=== PATIENT | female | born 1985 | race Caucasian/White ===

== ENCOUNTER 2017-05-23 09:50 | Emergency (ER) | payer OTHER ==
[2017-05-23 09:51] VITALS: BMI 25.4
[2017-05-23 10:00] VITALS: O2SAT 99
[2017-05-23] MEDS ORDERED: Naproxen 550 mg Tab PO STA (10:23)
[2017-05-23] MEDS ORDERED: Naproxen 550 mg Tab PO ONE (10:28)
--- NOTE | 2017-05-23 10:45 | RAD ---
PROCEDURE: Right Knee Radiographs. HISTORY: COMPARISON: None available. FINDINGS: BONES: No acute displaced fracture. JOINTS: No dislocation. JOINT EFFUSION: Tiny suprapatellar joint effusion. OTHER FINDINGS: None. IMPRESSION: Tiny suprapatellar joint effusion. No acute displaced fracture or dislocation.If symptoms persist, or if there is continued clinical concern, x-ray follow-up in 7-10 days should be considered.
--- NOTE | 2017-05-23 10:57 | C.PDOC ---
History Of Present Illness 31 y/o female c/o right knee pain for 3 days. She states the pain started after running on the treadmill on Sunday. She reports pain to medial aspect of the knee, worse with ambulation. Patient denies direct trauma, calf pain, SOB, chest pain, fever. Time Seen by Provider: 05/23/17 10:02 Chief Complaint (Nursing): Lower Extremity Problem/Injury History Per: Patient History/Exam Limitations: no limitations Onset/Duration Of Symptoms: Days Current Symptoms Are (Timing): Still Present Severity: Mild - Knee Description Of Injury: denies: Other Past Medical History Reviewed: Historical Data, Nursing Documentation, Vital Signs Vital Signs: Last Vital Signs Temp 98.2 F 05/23/17 12:44 Pulse 75 05/23/17 12:44 Resp 18 05/23/17 12:44 BP 119/69 05/23/17 12:44 Pulse Ox 99 05/23/17 12:44 - Medical History PMH: No Chronic Diseases - [facility] Procedures OTHER LOCAL DESTRUC SKIN (01/02/13) Family History: States: No Known Family Hx - Social History Hx Tobacco Use: No Hx Alcohol Use: No Hx Substance Use: No - Immunization History Hx Tetanus Toxoid Vaccination: No Hx Influenza Vaccination: No Hx Pneumococcal Vaccination: No Review Of Systems Except As Marked, All Systems Reviewed And Found Negative. Constitutional: Negative for: Fever, Chills Cardiovascular: Negative for: Chest Pain, Palpitations Respiratory: Negative for: Shortness of Breath Musculoskeletal: Positive for: Other (R knee pain) Skin: Negative for: Rash Neurological: Negative for: Weakness, Numbness Physical Exam - Physical Exam Appears: Well, Non-toxic, No Acute Distress Skin: Normal Color, Warm, Dry, No Rash Oral Mucosa: Moist Cardiovascular: Rhythm Regular Respiratory: Normal Breath Sounds, No Rales, No Rhonchi, No Wheezing Gastrointestinal/Abdominal: Normal Exam, Bowel Sounds, Soft, No Tenderness Pelvic: Normal External Exam, Normal Bimanual Exam, Vaginal Discharge (mild amount of thin white discharge, no CMT), No Cervical Motion Tenderness, No Cervix Open, No Adnexal Tenderness, No Mass Extremity: No Calf Tenderness, Capillary Refill (< 2 sec all digits ), No Deformity, Other (R knee: mild swelling at medial aspect, +tender to palpation. Pain worsens with flexion of the knee. ROM intact. No erythema or warmth. No calf tenderness. Pedal pulses normal. ) Extremity: Bilateral: Normal Color And Temperature Pulses: Left Dorsalis Pedis: Normal, Right Dorsalis Pedis: Normal Neurological/Psych: Oriented x3, Normal Motor, Normal Sensation Gait: Steady ED Course And Treatment O2 Sat by Pulse Oximetry: 99 (RA) Pulse Ox Interpretation: Normal - Other Rad R KNEE X-RAY X-Ray: Viewed By Me, Read By Radiologist Interpretation: IMPRESSION: Tiny suprapatellar joint effusion. No acute displaced fracture or dislocation.If symptoms persist, or if there is continued clinical concern, x-ray follow-up in 7-10 days should be considered. Progress Note: Patient given PO naprosyn. Xray of right knee ordered and reviewed - (-) for fracture/dislocation. When reassessed prior to discharge, patient now states she also has suprapubic cramping and vaginal discharge. UA, Upreg and GC swab ordered. Patient admits to concern for STDs because her "goes to bars". Pelvic exam done by me, patient given IM rocephin and PO Azithromycin, as well as Rx for Flagyl. She was instructed to follow up with orthopedics and nursing technician within 1 week, and understands she should return to ED if symptoms worsen. Reevaluation Time: 12:30 Reassessment Condition: Improved Disposition Counseled Patient/Family Regarding: Studies Performed, Diagnosis, Need For Followup, Rx Given - Disposition Referrals: [facility] [Outside] [facility] [Outside] Jim Melton III, MD [Staff Provider] - Disposition: HOME/ ROUTINE Disposition Time: 12:30 Condition: STABLE Additional Instructions: SEGUIMIENTO CON ORTOPEDIA DENTRO DE 1 SEMANA EVITE DEPORTES / GIMNASIO [place]STA QUE SEA LIBERADO POR ORTOPEDIA USE MEDICAMENTO PARA DOLOR SEGN SEA NECESARIO REGRESE AL EDWIN DE EMERGENCIA SI LOS SNTOMAS EMPEORAN Prescriptions: metroNIDAZOLE [Flagyl] 500 mg PO BID #14 tab Naproxen [Naprosyn] 1 tab PO BID PRN #25 tab PRN Reason: Pain Instructions: Cervicitis (ED), Knee Sprain (ED) Forms: [employer] (Ugandan) Print Language: MALAY - POA Present On Arrival: None - Clinical Impression Clinical Impression: Right knee sprain, Soft tissue injury of knee, Cervicitis - Scribe Statement The provider has reviewed the documentation as recorded by the Scribe SM All medical record entries made by the Scribe were at my direction and personally dictated by me. I have reviewed the chart and agree that the record accurately reflects my personal performance of the history, physical exam, medical decision making, and the department course for this patient. I have also personally directed, reviewed, and agree with the discharge instructions and disposition.
[2017-05-23 11:31] LABS: RBC URINE < 1 /hpf (0-3); URINE BILIRUBIN NEGATIVE (NEGATIVE); URINE BLOOD NEGATIVE (NEGATIVE); URINE COLOR Straw (YELLOW); URINE GLUCOSE (UA) NORMAL (Normal); URINE KETONE NEGATIVE (NEGATIVE); URINE LEUKOCYTE ESTERASE NEG Leu/uL (Negative); URINE PROTEIN NEGATIVE (NEGATIVE); URINE UROBILINOGEN NORMAL mg/dL (0.2-1.0); WBC URINE < 1 /hpf (0-5)
[2017-05-23] MEDS ORDERED: cefTRIAXone (Rocephin) 250 mg Inj IM STA (11:55)
[2017-05-23 12:45] VITALS: BP 119/69; PULSE 75; RESP 18; TEMP 98.2
== END 2017-05-23 12:45 | disposition home or self-care (01) ==
LOC: C.ER 09:50
DX: S83.91XA Sprain of unspecified site of right knee, initial encounter (principal); X58.XXXA Exposure to other specified factors, initial encounter; Y93.A1 Activity, exercise machines primarily for cardiorespiratory conditioning

== ENCOUNTER 2017-11-27 09:46 | Emergency (ER) | payer OTHER ==
[2017-11-27 09:47] VITALS: BMI 28.9
[2017-11-27 09:56] VITALS: BP 115/63; PULSE 61; RESP 16; TEMP 98.5; O2SAT 99
--- NOTE | 2017-11-27 10:32 | C.PDOC ---
History Of Present Illness 32 year old female presents to the ED with bilateral wrist pain for the past 2 weeks. 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 She is right hand dominant. She denies any trauma, direct injury, fever, or chills. Patient says she took Tylenol with no improvement. Patient denies having any other joint pain. Time Seen by Provider: 11/27/17 09:58 Chief Complaint (Nursing): Upper Extremity Problem/Injury History Per: Patient History/Exam Limitations: no limitations Onset/Duration Of Symptoms: Days Current Symptoms Are (Timing): Still Present Past Medical History Reviewed: Historical Data, Nursing Documentation, Vital Signs Vital Signs: Last Vital Signs Temp 98.5 F 11/27/17 09:54 Pulse 61 11/27/17 09:54 Resp 16 11/27/17 09:54 BP 115/63 11/27/17 09:54 Pulse Ox 99 11/27/17 11:36 Surgical History: (3) - [facility] Procedures OTHER LOCAL DESTRUC SKIN (01/02/13) Family History: States: Unknown Family Hx - Social History Hx Tobacco Use: No Hx Alcohol Use: No Hx Substance Use: No - Immunization History Hx Tetanus Toxoid Vaccination: No Hx Influenza Vaccination: No Hx Pneumococcal Vaccination: No Review Of Systems Except As Marked, All Systems Reviewed And Found Negative. Musculoskeletal: Positive for: Other (wrist pain) Physical Exam - Physical Exam Appears: Non-toxic, No Acute Distress Skin: Normal Color, Warm Head: Atraumatic, Normacephalic Eye(s): bilateral: Normal Inspection Extremity: Tenderness (to bilateral wrists), No Swelling, Other ( neurovascularly intact) Neurological/Psych: Oriented x3, Normal Speech ED Course And Treatment O2 Sat by Pulse Oximetry: 99 (RA) Pulse Ox Interpretation: Normal Medical Decision Making Medical Decision Making: IMPRESSION: Joint Pain Plan: --Motrin 600 mg PO --Given a splint for both wrists Patient is stable for discharge home. Advised to follow-up with pain management. Disposition Counseled Patient/Family Regarding: Studies Performed, Diagnosis, Need For Followup, Rx Given - Disposition Disposition: HOME/ ROUTINE Disposition Time: 10:31 Condition: STABLE Additional Instructions: follow up with pain management in 2 days call to make an appointment ice wrist after work each day take pain medications as prescribed take medication with food return to ER if symptoms worsens or progress Prescriptions: Naproxen [Naprosyn] 500 mg PO BID PRN #16 tab PRN Reason: Pain, Moderate (4-7) Instructions: Joint Pain Forms: Gen Discharge Inst [place], [facility] ([place]) Print Language: UPPER SORBIAN - Clinical Impression Clinical Impression: Joint pain - Scribe Statement The provider has reviewed the documentation as recorded by the Pastor Phillips Provider Attestation: All medical record entries made by the Pastor were at my direction and personally dictated by me. I have reviewed the chart and agree that the record accurately reflects my personal performance of the history, physical exam, medical decision making, and the department course for this patient. I have also personally directed, reviewed, and agree with the discharge instructions and disposition.
== END 2017-11-27 10:40 | disposition home or self-care (01) ==
LOC: C.ER 09:46
DX: M25.532 Pain in left wrist (principal); M25.531 Pain in right wrist

== ENCOUNTER 2018-04-25 20:52 | Emergency (ER) | payer OTHER ==
[2018-04-25 20:52] VITALS: BMI 28.9
[2018-04-25 21:00] VITALS: BP 124/86; PULSE 80; TEMP 98.7; O2SAT 97
--- NOTE | 2018-04-25 21:33 | C.PDOC ---
History Of Present Illness 32 y/o female c/o painful lump to left lateral breast for three days. lmp 5 days ago, no family hx breast ca. no fever. no injury to breast. denies nipple discharge. Time Seen by Provider: 04/25/18 21:02 Chief Complaint (Nursing): Breast Problem History Per: Patient History/Exam Limitations: no limitations Onset/Duration Of Symptoms: Days (3) Current Symptoms Are (Timing): Still Present Severity: Mild Past Medical History Reviewed: Historical Data, Nursing Documentation, Vital Signs Vital Signs: Last Vital Signs Temp 98.7 F 04/25/18 20:57 Pulse 80 04/25/18 20:57 Resp 14 04/25/18 20:57 BP 124/86 04/25/18 20:57 Pulse Ox 97 04/25/18 20:57 - Medical History PMH: No Chronic Diseases Surgical History: (3) - [facility] Procedures OTHER LOCAL DESTRUC SKIN (01/02/13) Family History: States: Unknown Family Hx - Social History Hx Tobacco Use: No Hx Alcohol Use: No Hx Substance Use: No - Immunization History Hx Tetanus Toxoid Vaccination: No Hx Influenza Vaccination: No Hx Pneumococcal Vaccination: No Review Of Systems Constitutional: Negative for: Fever, Chills Cardiovascular: Negative for: Chest Pain Respiratory: Negative for: Cough Skin: Positive for: Lesions (lump in breast) Neurological: Negative for: Weakness, Numbness Physical Exam - Physical Exam Appears: Non-toxic, No Acute Distress Skin: Warm, Dry, Other (tender pea sized mass left lateral breast, no overlying dimpling of skin, erythema or warmth. ) Head: Atraumatic, Normacephalic Lymphatic: No Adenopathy (no axillary adenopathy noted) Gastrointestinal/Abdominal: Bowel Sounds, Soft, No Tenderness Pelvic: Other (right breast non tender, left breast with tender pea size mass left lareral area, bilateral no nipple discharge ) ED Course And Treatment O2 Sat by Pulse Oximetry: 97 Medical Decision Making Medical Decision Making: pt with tender breast mass; discussed with patient to f/u in medical clinic for outpatient sonogram; pt to be given associate attorney number to help make more expedient appt; pt has one for 2 months from now.. Disposition Counseled Patient/Family Regarding: Diagnosis, Need For Followup - Disposition Disposition: HOME/ ROUTINE Disposition Time: 22:02 Condition: GOOD Additional Instructions: Llame a la clnica y al servicio de conserjera y trate de obtener madiha bassem antes con la clnica mdica o de la clnica. Recomendar ecografa ambulatoria de senos. [place] ibuprofeno para el dolor. Please call clinic and associate attorney service and try to get a sooner appointment with either medical or [facility]. Recommend outpatient sonogram of breasts. Take ibuprofen for pain. Prescriptions: Ibuprofen [Motrin] 600 mg PO TID #30 tab Instructions: Common Breast Problems Forms: Gen Discharge Inst Latvian, [facility] (Latvian) Print Language: WELSH - Clinical Impression Clinical Impression: Breast mass, left
[2018-04-25 22:31] VITALS: RESP 20
== END 2018-04-25 22:30 | disposition home or self-care (01) ==
LOC: C.ER 20:52
DX: N63.20 Unspecified lump in the left breast, unspecified quadrant (principal)

== ENCOUNTER 2018-11-20 09:37 | Outpatient (CLI) | payer OTHER | END 2018-11-20 09:38 | disposition home or self-care (01) | LOC: C.MAMMO 09:37 ==